=== PATIENT | male | born 1960 | race Two or more races ===

== ENCOUNTER → 2017-01-03 | Outpatient (CLI) | payer MEDICAID ==
[2017-01-03 07:28] LABS: CH 31.5; CHCM 34.1; HCT 42.8 % (39.0-53.0); HDW 2.66; HGB 14.2 gm/dL (13.0-17.5); MCH 30.7 pg (25.0-35.0); MCHC 33.2 g/dL (31.0-37.0); MCV 92.6 fL (80.0-100.0); Mean Platelet Volume 7.1; RBC 4.62 m/uL (4.30-5.90); RDW 13.3 % (11.5-15.5); WBC 5.5 k/uL (3.8-10.6)
[2017-01-03 11:34] LABS: Prostate Specific Antigen 0.61 ng/mL (0.00-4.00)
== END | disposition home or self-care (01) ==
LOC: LABWHC1 07:01
PROVIDERS: ATTEND Internal Medicine Endocrinology, Diabetes & Metabolism
DX: E29.1 Testicular hypofunction (principal)
CPT/HCPCS: 36415; 84153; 84403; 85027

== ENCOUNTER → 2017-06-16 | Outpatient (CLI) | payer MEDICAID ==
--- NOTE | 2017-06-16 13:53 | XR ---
Left ankle HISTORY: Trauma and pain 3 views of the left ankle No comparisons Soft tissue swelling is present. Ossific densities are present distal to the fibula which appear well -corticated and felt likely to represent chronic finding. Alignment, bone mineralization, joint space are maintained. There is a plantar calcaneal spur. Calcification present at the insertion of the Ach illes tendon. IMPRESSION: No acute abnormalities evident. Ankle MRI may be of increased sensitivity.
== END | disposition home or self-care (01) ==
LOC: RADXRMAIN 12:15
PROVIDERS: ATTEND Family Medicine
DX: M25.572 Pain in left ankle and joints of left foot (principal)

== ENCOUNTER → 2017-06-20 | Outpatient (CLI) | payer MEDICAID ==
[2017-06-20 09:05] LABS: ALT 53 U/L (21-72); AST 29 U/L (17-59); Alkaline Phosphatase 108 U/L (38-126); Anion Gap 10 mmol/L; Blood Urea Nitrogen 20 mg/dL (9-20); Calcium 9.9 mg/dL (8.4-10.2); Carbon Dioxide 25 mmol/L (22-30); Chloride 104 mmol/L (98-107); Glucose 132 mg/dL (74-99); Non-African American GFR(MDRD) >60 (>60 ml/min/1.73 sqM); Potassium 4.4 mmol/L (3.5-5.1); Sodium 139 mmol/L (137-145); Total Bilirubin 0.3 mg/dL (0.2-1.3); Total Protein 7.4 g/dL (6.3-8.2)
== END | disposition home or self-care (01) ==
LOC: LABWHC1 07:10
PROVIDERS: ATTEND Family Medicine
DX: E29.1 Testicular hypofunction (principal); I10 Essential (primary) hypertension
CPT/HCPCS: 36415; 80053

== ENCOUNTER → 2017-07-30 | Outpatient (CLI) | payer MEDICAID ==
--- NOTE | 2017-07-30 23:19 | MR ---
EXAMINATION TYPE: MR ankle LT wo con DATE OF EXAM: 07/30/2017 COMPARISON: NONE HISTORY: Left ankle Sprain Standard multiplanar, multisequence MRI departmental protocol Multiplanar, multisequence images of the left ankle were acquired. FINDINGS: There is mild ankle joint effusion. There is soft tissue edema noted anterior to the Achill es tendon. Achilles tendon is intact. Plantar fascia appears normal. The medial and lateral flexor te ndons of the ankle appear intact. The collateral ligaments are intact. Ankle mortise is anatomic. Kandis nt spaces are fairly normal. There is an Achilles calcaneal spur. There are varicose veins posterior to the ankle. There is abnormal increased signal on the T2 images in the base of the second metatarsal. I see no fr acture line. IMPRESSION: Varicose veins. Achilles calcaneal spurring. Small ankle joint effusion without evidence of a fractur e. This is consistent with synovitis. No evidence of ligament or tendon tear. Increased signal in the base of the second metatarsal consistent with a significant bone bruise. No f racture line seen.
== END | disposition home or self-care (01) ==
LOC: RADMRIMAIN 14:48
PROVIDERS: ATTEND Family Medicine
DX: M25.472 Effusion, left ankle (principal); I83.92 Asymptomatic varicose veins of left lower extremity; M77.32 Calcaneal spur, left foot

== ENCOUNTER 2019-05-05 21:34 | Observation (INO) | payer MEDICAID ==
--- NOTE | 2019-05-05 22:15 | ED ---
Chest Pain HPI - General Chief Complaint: Chest Pain Stated Complaint: Chest pain Time Seen by Provider: 05/05/19 21:56 Source: patient, family Mode of arrival: ambulatory Limitations: no limitations - History of Present Illness Initial Comments: This patient's 58-year-old man who presents with complaint of chest pain. He states that it had started in the late morning or early afternoon today. He describes as a tight feeling substernal area. The pain is mild. He had not noted worsening or relieving factors. The patient states however that when he went off to work tonight he felt like he was sweating more excessively than is usual for him. He denies other anginal type symptoms, including no dyspnea, nausea or vomiting, palpitations, lightheadedness or syncope. The patient further denies any family history of cardiac disease. No history of smoking. He has not previously had stress test or heart catheterization. MD Complaint: chest pain -: hour(s) Onset: during rest Pain Location: substernal Pain Radiation: none Severity: mild Quality: tightness Consistency: constant Improves With: nothing Worsens With: nothing Anginal Symptoms: diaphoresis Treatments Prior to Arrival: none - Related Data On Oral Contraceptives: No Home Medications Medication Instructions Recorded Confirmed Lisinopril/Hydrochlorothiazide 1 tab PO DAILY 08/22/16 05/05/19 [Lisinopril-Hctz 20-25 mg Tab] Tadalafil [Cialis] 20 mg PO DAILY PRN 08/22/16 05/05/19 Testosterone Cypionate 200 mg IM Q14D 08/22/16 05/05/19 [Depo-Testosterone] Atorvastatin [Lipitor] 40 mg PO HS 05/05/19 05/05/19 metFORMIN HCL [Glucophage] 500 mg PO DAILY 05/05/19 05/05/19 Allergies Allergy/AdvReac Type Severity Reaction Status Date / Time No Known Allergies Allergy Verified 05/05/19 22:14 Review of Systems ROS Statement: Those systems with pertinent positive or pertinent negative responses have been documented in the HPI. ROS Other: All systems not noted in ROS Statement are negative. Constitutional: Denies: fever, chills Respiratory: Denies: cough, dyspnea Cardiovascular: Reports: chest pain. Denies: palpitations, orthopnea, edema, syncope Gastrointestinal: Denies: abdominal pain, nausea, vomiting Genitourinary: Denies: dysuria, hematuria Musculoskeletal: Denies: back pain Skin: Denies: rash Neurological: Denies: headache, weakness, numbness EKG Findings - EKG Comments: EKG Findings:: Possible old septal infarct. - EKG Results: EKG: interpreted by GARCIA, sinus rhythm, normal axis, normal ST/T EKG shows: tachycardia (Rate 102 BPM) Past Medical History Past Medical History: Hypertension Additional Past Medical History / Comment(s): Receives testerone injections every 2 weeks for about one year History of Any Multi-Drug Resistant Organisms: None Reported Past Surgical History: No Surgical Hx Reported Additional Past Surgical History / Comment(s): colonoscopy Past Psychological History: No Psychological Hx Reported Smoking Status: Never smoker Past Alcohol Use History: Occasional Past Drug Use History: None Reported - Past Family History Mother Family Medical History: No Reported History Father Family Medical History: No Reported History General Exam Limitations: no limitations General appearance: alert, in no apparent distress Head exam: Present: atraumatic, normocephalic Eye exam: Present: normal appearance. Absent: scleral icterus, conjunctival injection Respiratory exam: Present: normal lung sounds bilaterally. Absent: respiratory distress, wheezes, rales, rhonchi, stridor Cardiovascular Exam: Present: regular rate, normal rhythm, normal heart sounds. Absent: systolic murmur, diastolic murmur, rubs, gallop GI/Abdominal exam: Present: soft. Absent: distended, tenderness, guarding, rebound, rigid, mass Extremities exam: Present: normal inspection, normal capillary refill. Absent: pedal edema, calf tenderness Back exam: Present: normal inspection. Absent: CVA tenderness (R), CVA tenderness (L) Neurological exam: Present: alert Skin exam: Present: warm, dry, intact, normal color. Absent: rash Course Vital Signs 05/05/19 05/05/19 21:38 22:03 Temperature 98.6 F Pulse Rate 100 96 Respiratory 18 16 Rate Blood Pressure 148/97 144/88 O2 Sat by Pulse 98 100 Oximetry Disposition Clinical Impression: Chest pain Disposition: ADMITTED IP TO THIS HOSP Condition: Good Instructions (If sedation given, give patient instructions): Chest Pain (ED) Is patient prescribed a controlled substance at d/c from ED?: No Referrals: Mayank Lara MD [Primary Care Provider] - 1-2 days
[2019-05-05 22:27] LABS: Basophils % (A) 0 %; Eosinophils # (A) 0.1 k/uL (0-0.7); Eosinophils % (A) 2 %; HCT 42.4 % (39.0-53.0); HGB 14.8 gm/dL (13.0-17.5); Lymphocytes # (A) 1.7 k/uL (1.0-4.8); Lymphocytes % (A) 22 %; MCH 30.4 pg (25.0-35.0); MCHC 34.9 g/dL (31.0-37.0); Mean Platelet Volume 7.7; Monocytes # (A) 0.5 k/uL (0-1.0); Monocytes % (A) 6 %; Neutrophils # (A) 5.3 k/uL (1.3-7.7); Neutrophils % (A) 69 %; Platelet Count 229 k/uL (150-450); RBC 4.87 m/uL (4.30-5.90); RDW 14.1 % (11.5-15.5); WBC 7.8 k/uL (3.8-10.6)
[2019-05-05 22:31] LABS: MCV 87.2 fL (80.0-100.0)
[2019-05-05 22:36] LABS: ALT 34 U/L (21-72); AST 23 U/L (17-59); African American GFR (CKD) >90 (>60 ml/min/1.73 sqM); Albumin 4.3 g/dL (3.5-5.0); Alkaline Phosphatase 94 U/L (38-126); Anion Gap 10 mmol/L; Blood Urea Nitrogen 14 mg/dL (9-20); Carbon Dioxide 26 mmol/L (22-30); Chloride 101 mmol/L (98-107); Glucose 138 mg/dL (74-99); INR 0.8 (<1.2); Magnesium 1.7 mg/dL (1.6-2.3); Prothrombin Time 9.4 sec (9.0-12.0); Sodium 137 mmol/L (137-145); Total Bilirubin 0.3 mg/dL (0.2-1.3); Total Protein 7.2 g/dL (6.3-8.2)
--- NOTE | 2019-05-05 23:35 | XR ---
EXAM: XR Chest, 2 Views CLINICAL HISTORY: Chest Pain TECHNIQUE: Frontal and lateral views of the chest. COMPARISON: No relevant prior studies available. FINDINGS: Lungs: Unremarkable. No consolidation. Pleural space: Unremarkable. No pneumothorax. Heart: Unremarkable. No cardiomegaly. Mediastinum: Unremarkable. Bones/joints: Unremarkable. IMPRESSION: No acute abnormality in the lungs
[2019-05-06] MEDS ORDERED: NITROGLYCERIN SL TABS 0.4 MG TAB SUBLINGUAL PRN (00:08)
[2019-05-06 00:52] VITALS: BMI 25.8
[2019-05-06 03:46] VITALS: RESP 18
[2019-05-06 06:44] LABS: Glucose,Whole Blood 120 mg/dL (75-99)
[2019-05-06 07:39] VITALS: BP 146/78; PULSE 92; TEMP 98.1
--- NOTE | 2019-05-06 08:28 | P.HPIM ---
History of Present Illness H&P Date: 05/06/19 Chief Complaint: Chest pain. The patient is here with new onset chest pressure at work. He states he was doing minimal exertion and had significant substernal chest pressure. No radiation but there is some mild diaphoresis. He has an underlying history of hypertension and diabetes. Enzymatic elevation is not present at this time but given his multiple risk factors he was admitted for observation. Blood pressure is slightly elevated. Review of Systems Constitutional: Denies chills, Denies fever Eyes: denies blurred vision, denies pain Ears, nose, mouth and throat: Denies headache, Denies sore throat Cardiovascular: Reports chest pain, Denies leg edema, Denies shortness of breath Respiratory: Denies cough Gastrointestinal: Denies abdominal pain, Denies diarrhea, Denies nausea, Denies vomiting Musculoskeletal: Denies myalgias Integumentary: Denies pruritus, Denies rash Neurological: Denies numbness, Denies weakness Past Medical History Past Medical History: Hypertension Additional Past Medical History / Comment(s): Receives testerone injections every 2 weeks for about one year History of Any Multi-Drug Resistant Organisms: None Reported Past Surgical History: No Surgical Hx Reported Additional Past Surgical History / Comment(s): colonoscopy Past Psychological History: No Psychological Hx Reported Smoking Status: Never smoker Past Alcohol Use History: Occasional Past Drug Use History: None Reported - Past Family History Mother Family Medical History: No Reported History Father Family Medical History: No Reported History Medications and Allergies Home Medications Medication Instructions Recorded Confirmed Type RX: Lisinopril/Hydrochlorothiazide 1 tab PO DAILY 08/22/16 05/05/19 History [Lisinopril-Hctz 20-25 mg Tab] RX: Tadalafil [Cialis] 20 mg PO DAILY PRN 08/22/16 05/05/19 History RX: Testosterone Cypionate 200 mg IM Q14D 08/22/16 05/05/19 History [Depo-Testosterone] Atorvastatin [Lipitor] 40 mg PO HS 05/05/19 05/05/19 History metFORMIN HCL [Glucophage] 500 mg PO DAILY 05/05/19 05/05/19 History Allergies Allergy/AdvReac Type Severity Reaction Status Date / Time No Known Allergies Allergy Verified 05/05/19 22:14 Physical Exam Vitals: Vital Signs Temp Pulse Pulse Resp BP BP Pulse Ox 05/06/19 07:10 98.1 F 92 18 146/78 97 05/06/19 03:51 137/67 05/06/19 03:43 98.0 F 65 18 152/73 99 05/06/19 00:56 98.3 F 82 16 156/84 98 05/06/19 00:16 98.2 F 90 15 144/85 98 05/05/19 22:03 96 16 144/88 100 05/05/19 21:38 98.6 F 100 18 148/97 98 Intake and Output 05/05/19 05/06/19 05/06/19 22:59 06:59 14:59 Output Total 1 Balance -1 Output: Urine 1 Other: Weight 66.224 kg - Constitutional General appearance: no acute distress - EENT Eyes: EOMI - Neck Neck: no lymphadenopathy - Respiratory Respiratory: bilateral: CTA - Cardiovascular Rhythm: regular Heart sounds: normal: S1, S2 Abnormal Heart Sounds: no S3 Gallop - Gastrointestinal General gastrointestinal: soft, no tenderness - Integumentary Integumentary: no cellulitis - Musculoskeletal Musculoskeletal: no generalized weakness - Psychiatric Psychiatric: A&O x's 3, appropriate affect, intact judgment & insight Results CBC & Chem 7: 05/05/19 22:00 05/05/19 22:00 Labs: Abnormal Lab Results - Last 24 Hours (Table) 05/05/19 05/06/19 Range/Units 22:00 06:41 Creatinine 0.64 L (0.66-1.25) mg/dL Glucose 138 H (74-99) mg/dL POC Glucose (mg/dL) 120 H (75-99) mg/dL Thrombosis Risk Factor Assmnt - Choose All That Apply Each Factor Represents 1 point: Age 41-60 years, Obesity (BMI >25) Thrombosis Risk Factor Assessment Total Risk Factor Score: 2 Thrombosis Risk Factor Assessment Level: Low Risk Assessment and Plan (1) Chest pain Current Visit: Yes Status: Acute Code(s): R07.9 - CHEST PAIN, UNSPECIFIED SNOMED Code(s): 79097634 (2) Hypertension Current Visit: No Status: Acute Code(s): I10 - ESSENTIAL (PRIMARY) HYPERTENSION SNOMED Code(s): 19543900 (3) New onset type 2 diabetes mellitus Current Visit: No Status: Acute Code(s): E11.9 - TYPE 2 DIABETES MELLITUS W ITHOUT COMPLICATIONS SNOMED Code(s): 43697297 Plan: Given his overall risk factors including advancing age with element of diabetes, we will order a's stress testing element. Today, we'll he will most likely have it done first thing next week. Increase antihypertensive control. Appreciate cardiology input. He is a full code
--- NOTE | 2019-05-06 08:31 | P.DS ---
Providers Date of admission: 05/06/19 00:10 Attending physician: Mayank Lara Consults: 05/06/19 00:08 Consult Physician Routine Consulting Provider: Brian Kevin Consult Reason/Comments: chest pain Do you want consulting provider notified?: Yes Primary care physician: Mayank Lara - Discharge Diagnosis(es) (1) Chest pain Current Visit: Yes Status: Acute (2) Hypertension Current Visit: No Status: Acute (3) New onset type 2 diabetes mellitus Current Visit: No Status: Acute Hospital Course: This discharge summary 58-year-old white male essentially admitted for angina. The patient has been ruled out for myocardial infraction and will be discharged for appropriate stress testing as an outpatient. He'll be discharged once cleared by cardiology. Patient Condition at Discharge: Good Plan - Discharge Summary New Discharge Prescriptions: New Aspirin 325 mg PO DAILY #0 tab Metoprolol Tartrate [Lopressor] 25 mg PO BID #60 tab Continue Tadalafil [Cialis] 20 mg PO DAILY PRN PRN Reason: E.D. Lisinopril/Hydrochlorothiazide [Lisinopril-Hctz 20-25 mg Tab] 1 tab PO DAILY Testosterone Cypionate [Depo-Testosterone] 200 mg IM Q14D metFORMIN HCL [Glucophage] 500 mg PO DAILY Atorvastatin [Lipitor] 40 mg PO HS Discharge Medication List Lisinopril/Hydrochlorothiazide [Lisinopril-Hctz 20-25 mg Tab] 1 tab PO DAILY 08/22/16 [History] Tadalafil [Cialis] 20 mg PO DAILY PRN 08/22/16 [History] Testosterone Cypionate [Depo-Testosterone] 200 mg IM Q14D 08/22/16 [History] Atorvastatin [Lipitor] 40 mg PO HS 05/05/19 [History] metFORMIN HCL [Glucophage] 500 mg PO DAILY 05/05/19 [History] Aspirin 325 mg PO DAILY #0 tab 05/06/19 [Rx] Metoprolol Tartrate [Lopressor] 25 mg PO BID #60 tab 05/06/19 [Rx] Follow up Appointment(s)/Referral(s): Mayank Lara MD [Primary Care Provider] - 1 Week Patient Instructions/Handouts: Chest Pain (ED) Discharge Disposition: HOME SELF-CARE
[2019-05-06 08:56] LABS: Cholesterol 133 mg/dL (<200); HDL Cholesterol 49 mg/dL (40-60); LDL Cholesterol,Calculated 62 mg/dL (0-99); Triglycerides 109 mg/dL (<150)
[2019-05-06] MEDS ORDERED: LISINOPRIL-HCTZ 20-25 MG 1 EACH TAB PO SCH (09:00)
[2019-05-06] MEDS ORDERED: metFORMIN 500 MG TAB PO SCH (09:00)
[2019-05-06] MEDS ORDERED: METOPROLOL TARTRATE 25 MG TAB PO SCH (09:00)
--- NOTE | 2019-05-06 10:37 | P.CRDCN ---
History of Present Illness History of present illness: This is Dr. Kevin dictating a consult on this patient The patient was interviewed and examined by me IMPRESSION / ASSESSMENT: Patient presented with chest discomfort on 2 separate occasions, very brief No dizziness lightheadedness or palpitations associated with this Normal cardiac enzymes no evidence for acute myocardial infarction Serial ECGs are normal Recently diagnosed with diabetes Hypertension, elevated blood pressure readings here Increased stress level at home Never smoker PLAN: Maximize antihypertensive therapy, add metoprolol tartrate 50 g twice daily Lipid panel Stress testing as an inpatient or early outpatient Follow Dr. Patterson thereafter HPI Patient presented with chest discomfort. Both episodes were brief. One was with average activities Nonradiating and lasted for less than a minute or so No associated symptoms Otherwise patient has good excess capacity no increased fatigue shortness of breath or any prior symptoms of the last few weeks ROS: No fever chills or rigors, no cough, phlegm or expectoration, no nausea, vomiting or diarrhea, no hematuria, dysuria, no musculoskeletal complaints, no strokes or seizures, no skin lesions. EXAMINATION: Afebrile 98.1F pulse rate 90 Blood pressure 137/67 146/78 Upon admission blood pressure is 156/84 and 152/73 minute his mercury Normal heart sounds no murmurs or gallop or rub Breath sounds are clear no rhonchi no crackles Abdomen soft nontender External is warm no edema No carotid bruits no JVD REVIEW OF LABS, ECG & MEDICAL DATA Hemoglobin 14.8 hematocrit 42.4 D-dimer 0.31 Electrolytes normal potassium 4.0 sodium 137 GFR greater than 90 BUN 14 creatinine 0.64 3 normal cardiac enzymes LDL 62 total cholesterol 133 triglycerides 109 Past Medical History Past Medical History: Hypertension Additional Past Medical History / Comment(s): Receives testerone injections every 2 weeks for about one year History of Any Multi-Drug Resistant Organisms: None Reported Past Surgical History: No Surgical Hx Reported Additional Past Surgical History / Comment(s): colonoscopy Past Psychological History: No Psychological Hx Reported Smoking Status: Never smoker Past Alcohol Use History: Occasional Past Drug Use History: None Reported - Past Family History Mother Family Medical History: No Reported History Father Family Medical History: No Reported History Medications and Allergies Home Medications Medication Instructions Recorded Confirmed Type Lisinopril/Hydrochlorothiazide 1 tab PO DAILY 08/22/16 05/05/19 History [Lisinopril-Hctz 20-25 mg Tab] Tadalafil [Cialis] 20 mg PO DAILY PRN 08/22/16 05/05/19 History Testosterone Cypionate 200 mg IM Q14D 08/22/16 05/05/19 History [Depo-Testosterone] Atorvastatin [Lipitor] 40 mg PO HS 05/05/19 05/05/19 History metFORMIN HCL [Glucophage] 500 mg PO DAILY 05/05/19 05/05/19 History Aspirin 325 mg PO DAILY #0 tab 05/06/19 Rx Metoprolol Tartrate [Lopressor] 25 mg PO BID #60 tab 05/06/19 Rx Allergies Allergy/AdvReac Type Severity Reaction Status Date / Time No Known Allergies Allergy Verified 05/05/19 22:14 Physical Exam Vitals: Vital Signs Temp Pulse Pulse Resp BP BP Pulse Ox 05/06/19 07:10 98.1 F 92 18 146/78 97 05/06/19 03:51 137/67 05/06/19 03:43 98.0 F 65 18 152/73 99 05/06/19 00:56 98.3 F 82 16 156/84 98 05/06/19 00:16 98.2 F 90 15 144/85 98 05/05/19 22:03 96 16 144/88 100 05/05/19 21:38 98.6 F 100 18 148/97 98 Intake and Output 05/05/19 05/06/19 05/06/19 22:59 06:59 14:59 Output Total 1 Balance -1 Output: Urine 1 Other: Weight 66.224 kg Results 05/05/19 22:00 05/05/19 22:00 Cardiac Enzymes 05/05/19 05/05/19 05/06/19 Range/Units 22:00 22:00 05:22 AST 23 (17-59) U/L Troponin I <0.012 <0.012 (0.000-0.034) ng/mL Coagulation 05/05/19 Range/Units 22:00 PT 9.4 (9.0-12.0) sec APTT 25.0 (22.0-30.0) sec CBC 05/05/19 Range/Units 22:00 WBC 7.8 (3.8-10.6) k/uL RBC 4.87 (4.30-5.90) m/uL Hgb 14.8 (13.0-17.5) gm/dL Hct 42.4 (39.0-53.0) % Plt Count 229 (150-450) k/uL Comprehensive Metabolic Panel 05/05/19 Range/Units 22:00 Sodium 137 (137-145) mmol/L Potassium 4.0 (3.5-5.1) mmol/L Chloride 101 (98-107) mmol/L Carbon Dioxide 26 (22-30) mmol/L BUN 14 (9-20) mg/dL Creatinine 0.64 L (0.66-1.25) mg/dL Glucose 138 H (74-99) mg/dL Calcium 10.0 (8.4-10.2) mg/dL AST 23 (17-59) U/L ALT 34 (21-72) U/L Alkaline Phosphatase 94 (38-126) U/L Total Protein 7.2 (6.3-8.2) g/dL Albumin 4.3 (3.5-5.0) g/dL Current Medications Generic Name Dose Route Start Last Admin Trade Name Daleq PRN Reason Stop Dose Admin Aspirin 325 mg 05/07/19 09:00 Aspirin PO DAILY [facility] Atorvastatin Calcium 40 mg 05/06/19 21:00 Lipitor PO HS [facility] Lisinopril/HCTZ 1 each 05/06/19 09:00 Zestoretic 20-25 PO DAILY [facility] Metformin HCl 500 mg 05/06/19 09:00 Glucophage PO DAILY [facility] Metoprolol Tartrate 25 mg 05/06/19 09:00 Lopressor PO BID [facility] Nitroglycerin 0.4 mg 05/06/19 00:08 05/06/19 03:46 Nitrostat SUBLINGUAL 0.4 mg Q5M PRN Administration Chest Pain Sodium Chloride 10 ml 05/06/19 09:00 Saline Flush IV BID OMEGA Intake and Output 05/05/19 05/06/19 05/06/19 22:59 06:59 14:59 Output Total 1 Balance -1 Output: Urine 1 Other: Weight 66.224 kg 05/05/19 22:00 05/05/19 22:00
[2019-05-06] MEDS ORDERED: ATORVASTATIN 40 MG TAB PO SCH (21:00)
[2019-05-07] MEDS ORDERED: ASPIRIN 325 MG TAB PO SCH (09:00)
== END 2019-05-06 10:45 | disposition home or self-care (01) ==
LOC: EC 21:34 → 1SOBS 05-06 00:10
PROVIDERS: ADMIT Family Medicine; ATTEND Family Medicine
DX: I20.9 Angina pectoris, unspecified (principal); I10 Essential (primary) hypertension; E11.9 Type 2 diabetes mellitus without complications; R61 Generalized hyperhidrosis; Z63.8 Other specified problems related to primary support group; Z79.899 Other long term (current) drug therapy; Z79.84 Long term (current) use of oral hypoglycemic drugs; Z79.82 Long term (current) use of aspirin
CPT/HCPCS: 99285; 36415; 93005; 85379; 80061; 80053; 83735; 84484 ×2; 85025; 85610; 85730; 71046; G0378

== ENCOUNTER 2019-06-15 20:35 | Emergency (ER) | payer MEDICAID ==
--- NOTE | 2019-06-15 21:54 | ED ---
Extremity Problem HPI - General Chief complaint: Extremity Problem,Nontraumatic Stated complaint: R Leg Pain Time Seen by Provider: 06/15/19 20:50 Source: patient Mode of arrival: wheelchair Limitations: no limitations - History of Present Illness Initial comments: Patient is a 58-year-old male presenting to the emergency Department with complaints of pain in his right lower leg 2 weeks. Patient states he did go see Dr. Lara regarding this issue and they thought it was related to soft tissue and recommended taking Motrin for the pain. Patient states he was able to work all day on his feet yesterday and was pain-free but then states he has pain with walking today. Patient denies recent travel or history DVTs. Patient denies any trauma to the lower leg. Patient has no other complaints at this time. - Related Data Home Medications Medication Instructions Recorded Confirmed Lisinopril/Hydrochlorothiazide 1 tab PO DAILY 08/22/16 06/15/19 [Lisinopril-Hctz 20-25 mg Tab] Tadalafil [Cialis] 20 mg PO DAILY PRN 08/22/16 06/15/19 Testosterone Cypionate 200 mg IM Q14D 08/22/16 06/15/19 [Depo-Testosterone] Atorvastatin [Lipitor] 40 mg PO HS 05/05/19 06/15/19 metFORMIN HCL [Glucophage] 500 mg PO DAILY 05/05/19 06/15/19 Previous Rx's Medication Instructions Recorded Aspirin 325 mg PO DAILY #0 tab 05/06/19 Metoprolol Tartrate [Lopressor] 25 mg PO BID #60 tab 05/06/19 Allergies Allergy/AdvReac Type Severity Reaction Status Date / Time No Known Allergies Allergy Verified 05/05/19 22:14 Review of Systems ROS Statement: Those systems with pertinent positive or pertinent negative responses have been documented in the HPI. ROS Other: All systems not noted in ROS Statement are negative. Past Medical History Past Medical History: Hypertension Additional Past Medical History / Comment(s): Receives testerone injections every 2 weeks for about one year History of Any Multi-Drug Resistant Organisms: None Reported Past Surgical History: No Surgical Hx Reported Additional Past Surgical History / Comment(s): colonoscopy Past Psychological History: No Psychological Hx Reported Smoking Status: Never smoker Past Alcohol Use History: Occasional Past Drug Use History: None Reported - Past Family History Mother Family Medical History: No Reported History Father Family Medical History: No Reported History General Exam - General Exam Comments Initial Comments: GENERAL: Well-appearing, well-nourished and in no acute distress. HEAD: Atraumatic, normocephalic. EYES: Pupils equal round and reactive to light, extraocular movements intact, sclera anicteric, conjunctiva are normal. ENT: TMs normal, nares patent, oropharynx clear without exudates. Moist mucous membranes. NECK: Normal range of motion, supple without lymphadenopathy or JVD. LUNGS: Breath sounds clear to auscultation bilaterally and equal. No wheezes rales or rhonchi. HEART: Regular rate and rhythm without murmurs, rubs or gallops. ABDOMEN: Soft, nontender, normoactive bowel sounds. No guarding, no rebound. No masses appreciated. : Deferred EXTREMITIES: No pitting or edema. No clubbing or cyanosis. Patient has mild pain with palpation along the right probably Harkins. Patient has full range of motion of the right knee and ankle. There is no ecchymosis or swelling. NEUROLOGICAL: Cranial nerves II through XII grossly intact. Normal speech, normal gait. PSYCH: Normal mood, normal affect. SKIN: Warm, Dry, normal turgor, no rashes or lesions noted. Limitations: no limitations Course Vital Signs 06/15/19 06/15/19 20:39 22:30 Temperature 97.8 F 98 F Pulse Rate 51 L 60 Respiratory 20 18 Rate Blood Pressure 168/87 151/71 O2 Sat by Pulse 100 98 Oximetry Medical Decision Making - Medical Decision Making Patient is a 58-year-old male with complaints of right lower leg pain 2 weeks. Patient was saw by his doctor Dr. Lara and stated is most likely soft tissue injury recommended Motrin. Patient denies any trauma to the area, no recent travel, no history of DVTs. On exam patient has tenderness of the peroneal is on the right lower leg. Patient has full range of motion of his right knee and ankle. No erythema, swelling of the overlying skin. Ultrasound reveals no DVTs of the right lower extremity. Discussed with patient this is most likely a soft tissue injury. Continue with ice and Motrin for pain relief. Patient is stable for discharge. Return parameters were discussed with the patient he verbalizes understanding. Case discussed with Dr. Lara. Disposition Clinical Impression: Pain in right lower leg Disposition: HOME SELF-CARE Condition: Stable Instructions (If sedation given, give patient instructions): Leg Pain (ED) Additional Instructions: Please return to the Emergency Department if symptoms worsen or any other concerns. Is patient prescribed a controlled substance at d/c from ED?: No Referrals: Mayank Lara MD [Primary Care Provider] - 1-2 days
--- NOTE | 2019-06-15 22:22 | US ---
EXAM: US Duplex Right Lower Extremity Veins CLINICAL HISTORY: ITS.REASON US Reason: Pain TECHNIQUE: Real-time duplex ultrasound scan of the right lower extremity veins integrating B-mode two-dimensional vascular structure, Doppler spectral analysis, color flow Doppler imaging and compression. COMPARISON: None. FINDINGS: Deep veins: Unremarkable. No DVT in the visualized common femoral, femoral, proximal deep femoral or popliteal veins. The veins demonstrate normal color flow, are normally compressible, with normal phasic flow and/or augmentation response. Superficial veins: Unremarkable. No thrombus in the visualized great saphenous vein. Soft tissues: No acute findings. No popliteal cyst. IMPRESSION: No evidence of deep vein thrombosis in the right lower extremity.
[2019-06-15 22:55] VITALS: BP 151/71; PULSE 60; RESP 18; TEMP 98
== END 2019-06-15 22:32 | disposition home or self-care (01) ==
LOC: EC 20:35
DX: M79.604 Pain in right leg (principal); I10 Essential (primary) hypertension; Z79.890 Hormone replacement therapy; Z79.84 Long term (current) use of oral hypoglycemic drugs; Z79.899 Other long term (current) drug therapy
CPT/HCPCS: 99283

== ENCOUNTER → 2020-04-20 | Outpatient (CLI) | payer MEDICAID ==
--- NOTE | 2020-04-20 11:18 | XR ---
EXAMINATION TYPE: XR Hip Complete RT DATE OF EXAM: 04/20/2020 CLINICAL HISTORY: pain TECHNIQUE: AP and frogleg views of the right hip are obtained. COMPARISON: None. FINDINGS: There is no acute fracture/dislocation evident. Moderate degenerative joint space narrowin g right hip joint. Convex spurring superior acetabular margin may result in femoral acetabular imping ement. Correlate clinically. The overlying soft tissue appears unremarkable. IMPRESSION: 1. There is no acute fracture or dislocation. ICD 10 NO FRACTURE, INITIAL EVALUATION
== END | disposition home or self-care (01) ==
LOC: RADXRYALE 10:32
PROVIDERS: ATTEND Family Medicine
DX: M25.551 Pain in right hip (principal)
CPT/HCPCS: 73502

== ENCOUNTER → 2021-09-23 | Outpatient (CLI) | payer MEDICAID ==
--- NOTE | 2021-09-23 15:28 | XR ---
EXAMINATION TYPE: XR lumbar spine 2 or 3V DATE OF EXAM: 09/23/2021 CLINICAL HISTORY: Worsening low back pain. TECHNIQUE: Frontal and lateral images of the lumbar spine are obtained. COMPARISON: None FINDINGS: There are 5 lumbar type vertebral bodies identified. The lumbar spine shows satisfactory alignment without evidence of acute fracture or dislocation. Vertebral body heights are within normal limits. Mild multilevel disc space narrowing. Moderate multilevel anterior and lateral spurring. Pro minent lateral spur left L3-L4 level. The overlying soft tissue appears unremarkable. IMPRESSION: As above.
== END | disposition home or self-care (01) ==
LOC: RADXRYALE 14:25
PROVIDERS: ATTEND Family Medicine
DX: M51.36 Other intervertebral disc degeneration, lumbar region (principal)
CPT/HCPCS: 72100

== ENCOUNTER → 2021-11-20 | Outpatient (CLI) | payer MEDICAID | END | disposition home or self-care (01) | LOC: LABWHC1 11:09 | PROVIDERS: ATTEND Family Medicine | DX: U07.1 COVID-19 (principal) | CPT/HCPCS: U0003; C9803 ==

== ENCOUNTER 2022-10-14 05:00 | Emergency (ER) | payer MEDICAID ==
[2022-10-14 05:15] VITALS: TEMP 98.8
[2022-10-14] MEDS ORDERED: KETOROLAC 15 MG/ML 1 ML VIAL IM STA (05:23)
--- NOTE | 2022-10-14 05:26 | ED ---
General Adult HPI - General Chief complaint: Neck Pain/Injury Stated complaint: Neck pain Time Seen by Provider: 10/14/22 05:17 Source: patient Mode of arrival: ambulatory Limitations: no limitations - History of Present Illness Initial comments: Dictation was produced using [employer] dictation software. please excuse any grammatical, word or spelling errors. Chief Complaint: 61-year-old male presents emergency Department with neck strain History of Present Illness: Patient 61-year-old male presents emergency Department with neck strain. 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 Patient states that he woke up the next morning noticed that he was having tightness to his cervical spine. Patient states it hurts whenever he turns his head to the left or the right. Denies any numbness or paresthesias to the arms or legs. Patient denies any trauma. States that when he still symptoms feel that severe. Denies any fever, chills or night sweats. The ROS documented in this emergency department record has been reviewed and confirmed by me. Those systems with pertinent positive or negative responses have been documented in the HPI. All other systems are other negative and/or noncontributory. PHYSICAL EXAM: General Impression: Alert and oriented x3, not in acute distress HEENT: Normocephalic atraumatic, extra-ocular movements intact, pupils equal and reactive to light bilaterally, mucous membranes moist. Cardiovascular: Heart regular rate and rhythm Chest: Able to complete full sentences, no retractions, no tachypnea Abdomen: abdomen soft, non-tender, non-distended, no organomegaly Musculoskeletal: Pulses present and equal in all extremities, no peripheral edema Cervical spine: Palpatory tenderness to the upper trapezius bilaterally Motor: no focal deficits noted Neurological: CN II-XII grossly intact, no focal motor or sensory deficits noted Skin: Intact with no visualized rashes Psych: Normal affect and mood ED course: 61-year-old male presents emergency Department with cervical strain. vital signs upon arrival are within acceptable limits. Nursing notes and chart review was performed C-spine x-ray shows no acute processes. There does appear to be some degenerative changes. Patient given analgesics with improvement of symptoms. Patient be discharged with prescription for muscle relaxants. Patient advised follow-up with primary care doctor. - Related Data Home Medications Medication Instructions Recorded Confirmed Lisinopril/Hydrochlorothiazide 1 tab PO DAILY 08/22/16 06/15/19 [Lisinopril-Hctz 20-25 mg Tab] Testosterone Cypionate 200 mg IM Q14D 08/22/16 06/15/19 [Depo-Testosterone] tadalafiL [Cialis] 20 mg PO DAILY PRN 08/22/16 06/15/19 Atorvastatin [Lipitor] 40 mg PO HS 05/05/19 06/15/19 metFORMIN HCL [Glucophage] 500 mg PO DAILY 05/05/19 06/15/19 Previous Rx's Medication Instructions Recorded Aspirin 325 mg PO DAILY #0 tab 05/06/19 Metoprolol Tartrate [Lopressor] 25 mg PO BID #60 tab 05/06/19 methocarbamoL [Robaxin] 1,000 mg PO TID PRN #24 tab 10/14/22 Allergies Allergy/AdvReac Type Severity Reaction Status Date / Time No Known Allergies Allergy Verified 10/14/22 05:15 Review of Systems ROS Statement: Those systems with pertinent positive or pertinent negative responses have been documented in the HPI. ROS Other: All systems not noted in ROS Statement are negative. Past Medical History Past Medical History: Hypertension Additional Past Medical History / Comment(s): Receives testerone injections every 2 weeks for about one year History of Any Multi-Drug Resistant Organisms: None Reported Past Surgical History: No Surgical Hx Reported Additional Past Surgical History / Comment(s): colonoscopy Past Psychological History: No Psychological Hx Reported Smoking Status: Never smoker Past Alcohol Use History: Occasional Past Drug Use History: None Reported - Past Family History Mother Family Medical History: No Reported History Father Family Medical History: No Reported History General Exam Limitations: no limitations Course Vital Signs 10/14/22 05:11 Temperature 98.8 F Pulse Rate 113 H Respiratory 20 Rate Blood Pressure 168/101 O2 Sat by Pulse 97 Oximetry Disposition Clinical Impression: Cervical strain Disposition: HOME SELF-CARE Condition: Good Instructions (If sedation given, give patient instructions): Cervical Strain (ED) Prescriptions: methocarbamoL [Robaxin] 1,000 mg PO TID PRN #24 tab PRN Reason: Pain Is patient prescribed a controlled substance at d/c from ED?: No Referrals: Mayank Lara MD [Primary Care Provider] - 1-2 days Benji Kirk DO [Doctor of Osteopathic Medicine] - 1-2 days Time of Disposition: 06:36
--- NOTE | 2022-10-14 06:28 | XR ---
EXAMINATION TYPE: XR cervical spine comp DATE OF EXAM: 10/14/2022 TECHNIQUE: Frontal, lateral, oblique, swimmers, and open mouth view of the cervical spine are obtaine d. HISTORY: neck strain injury with pain COMPARISON: None FINDINGS: The cervical spine is visualized in its entirety from C1 thru the top of T1 level, there i s subtle grade 1 retrolisthesis C3 on C4 and C5 on C6 without evidence of acute fracture or dislocati on. Slight levoconvex scoliotic curvature centered cervical thoracic junction on frontal view. The pr e-vertebral soft tissue appears within normal limits. The C1-C2 articulation is within normal limits on the open mouth view. Vertebral body heights are maintained. Mild to moderate disc space narrowing and spurring C3-C4, C5-C6, and C6-C7 levels is present. The oblique images show marginal spurring c ausing bilateral neural foraminal narrowing greatest right C5-C6 and C6-C7 levels and left C3-C4 leve l. Overlying soft tissue is unremarkable. IMPRESSION: As above.
[2022-10-14 06:56] VITALS: BP 144/81; PULSE 102; RESP 18
== END 2022-10-14 06:56 | disposition home or self-care (01) ==
LOC: EC 05:00
DX: S13.4XXA Sprain of ligaments of cervical spine, initial encounter (principal); I10 Essential (primary) hypertension; Z79.899 Other long term (current) drug therapy; X50.0XXA Overexertion from strenuous movement or load, initial encounter
CPT/HCPCS: 72050; 99283; 96372 ×2; J3360; J1885

== ENCOUNTER → 2024-02-05 | Outpatient (CLI) | payer MEDICAID ==
[2024-02-05 15:47] LABS: HCT 44.8 % (39.6-50.0); HGB 14.6 g/dL (13.0-17.0); MCH 29.4 pg (27.0-32.0); MCHC 32.6 g/dL (32.0-37.0); MCV 90.1 FL (80.0-97.0); Mean Platelet Volume 10.9 FL (9.5-12.2); NRBC Per 100 WBC 0 X 10*3/uL (0.00-0.01); Platelet Count 263 X 10*3/uL (140-440); RBC 4.97 X 10*6/uL (4.40-5.60); WBC 5.08 X 10*3/uL (4.50-10.00)
[2024-02-05 15:58] LABS: Prostate Specific Antigen 0.73 ng/mL (0.000-4.500)
== END | disposition home or self-care (01) ==
LOC: LABWHC1 06:59
PROVIDERS: ATTEND Internal Medicine Endocrinology, Diabetes & Metabolism
DX: E29.1 Testicular hypofunction (principal)
CPT/HCPCS: 36415; 84153; 84403; 85027

== ENCOUNTER 2024-03-02 20:09 | Emergency (ER) | payer MEDICAID ==
[2024-03-02 20:33] VITALS: RESP 16
--- NOTE | 2024-03-02 20:50 | ED ---
General Adult HPI - General Chief complaint: Back Pain/Injury Stated complaint: back pain Time Seen by Provider: 03/02/24 20:35 Source: patient, RN notes reviewed Mode of arrival: ambulatory Limitations: no limitations - History of Present Illness Initial comments: 63-year-old male presents to the emergency department for evaluation of back pain. He states that this has been going on for about 2 years but since yesterday he has had worsening pain. Notes the pain is from his mid back down to his pelvis. He denies any recent injury. He denies loss of bowel or bladder function, saddle anesthesia, radiation of the pain. He denies recent fever, chills. Medical history includes hypertension, diabetes. - Related Data Home Medications Medication Instructions Recorded Confirmed Lisinopril/Hydrochlorothiazide 1 tab PO DAILY 08/22/16 06/15/19 [Lisinopril-Hctz 20-25 mg Tab] Testosterone Cypionate 200 mg IM Q14D 08/22/16 06/15/19 [Depo-Testosterone] tadalafiL [Cialis] 20 mg PO DAILY PRN 08/22/16 06/15/19 Atorvastatin [Lipitor] 40 mg PO HS 05/05/19 06/15/19 metFORMIN HCL [Glucophage] 500 mg PO DAILY 05/05/19 06/15/19 Previous Rx's Medication Instructions Recorded Aspirin 325 mg PO DAILY #0 tab 05/06/19 Metoprolol Tartrate [Lopressor] 25 mg PO BID #60 tab 05/06/19 methocarbamoL [Robaxin] 1,000 mg PO TID PRN #24 tab 10/14/22 Cyclobenzaprine [Flexeril] 10 mg PO TID #9 tab 03/02/24 Ketorolac [Toradol] 10 mg PO Q6HR #12 tab 03/02/24 Allergies Allergy/AdvReac Type Severity Reaction Status Date / Time No Known Allergies Allergy Verified 03/02/24 20:12 Review of Systems ROS Statement: Those systems with pertinent positive or pertinent negative responses have been documented in the HPI. ROS Other: All systems not noted in ROS Statement are negative. Past Medical History Past Medical History: Hypertension Additional Past Medical History / Comment(s): Receives testerone injections every 2 weeks for about one year History of Any Multi-Drug Resistant Organisms: None Reported Past Surgical History: No Surgical Hx Reported Additional Past Surgical History / Comment(s): colonoscopy Past Psychological History: No Psychological Hx Reported Smoking Status: Never smoker Past Alcohol Use History: Occasional Past Drug Use History: None Reported - Past Family History Mother Family Medical History: No Reported History Father Family Medical History: No Reported History General Exam Limitations: no limitations General appearance: alert, in no apparent distress Head exam: Present: atraumatic, normocephalic, normal inspection Eye exam: Present: normal appearance, PERRL, EOMI. Absent: scleral icterus, conjunctival injection, periorbital swelling ENT exam: Present: normal exam, mucous membranes moist Neck exam: Present: normal inspection. Absent: tenderness, meningismus, lymphadenopathy Respiratory exam: Present: normal lung sounds bilaterally. Absent: respiratory distress, wheezes, rales, rhonchi, stridor Cardiovascular Exam: Present: regular rate, normal rhythm, normal heart sounds. Absent: systolic murmur, diastolic murmur, rubs, gallop, clicks Extremities exam: Present: normal inspection, full ROM, normal capillary refill. Absent: tenderness, pedal edema, joint swelling, calf tenderness Back exam: Present: normal inspection, full ROM, tenderness, vertebral tenderness. Absent: CVA tenderness (R), CVA tenderness (L), paraspinal t enderness Neurological exam: Present: alert, oriented X3 Psychiatric exam: Present: normal affect, normal mood Skin exam: Present: warm, dry, intact, normal color. Absent: rash Course Vital Signs 03/02/24 03/02/24 03/02/24 20:10 21:00 22:04 Temperature 98.4 F Pulse Rate 65 79 65 Respiratory 16 16 16 Rate Blood Pressure 170/74 162/92 146/82 O2 Sat by Pulse 99 99 98 Oximetry 03/02/24 23:06 Temperature 97.8 F Pulse Rate 64 Respiratory 16 Rate Blood Pressure 146/80 O2 Sat by Pulse 97 Oximetry Medical Decision Making - Medical Decision Making Was pt. sent in by a medical professional or institution (, PA, LEGAL RECORDS CLERK, urgent care, hospital, or [facility]...) When possible be specific @ -No Did you speak to anyone other than the patient for history (EMS, parent, family, police, friend...)? What history was obtained from this source @ -No Did you review nursing and triage notes (agree or disagree)? Why? @ -I reviewed and agree with nursing and triage notes Were old charts reviewed (outside hosp., previous admission, EMS record, old EKG, old radiological studies, urgent care reports/EKG's, chcf records)? Report findings @ -No old charts were reviewed Differential Diagnosis (chest pain, altered mental status, abdominal pain women, abdominal pain men, vaginal bleeding, weakness, fever, dyspnea, syncope, headache, dizziness, GI bleed, back pain, seizure, CVA, palpatations, mental health, musculoskeletal)? @ -Differential Back Pain: Strain, zoster, cauda equina syndrome, epidural abscess, vertebral osteomyelitis, discitis, fracture, subluxation, disc herniation, DJD, spinal stenosis, dissection, AAA, pancreatitis, peptic ulcer disease, pyelonephritis, kidney stone, this is not meant to be an all-inclusive list. EKG interpreted by me (3pts min.). @ -None X-rays interpreted by me (1pt min.). @ -X-ray of the lumbar spine obtained which showed moderate degenerative joint changes CT interpreted by me (1pt min.). @ -None done U/S interpreted by me (1pt. min.). @ -None done What testing was considered but not performed or refused? (CT, X-rays, U/S, labs)? Why? @ -None What meds were considered but not given or refused? Why? @ -None Did you discuss the management of the patient with other professionals (professionals i.e. , PA, LEGAL RECORDS CLERK, lab, RT, psych nurse, secondary social studies teacher, fiberglass technician, teacher, gifts officer, senior clinical data manager)? Give summary @ -No Was smoking cessation discussed for >3mins.? @ -No Was critical care preformed (if so, how long)? @ -No Were there social determinants of health that impacted care today? How? (Homelessness, low income, unemployed, alcoholism, drug addiction, transportation, low edu. Level, literacy, decrease access to med. care, chcf, rehab)? @ -No Was there de-escalation of care discussed even if they declined (Discuss DNR or withdrawal of care, Hospice)? DNR status @ -No What co-morbidities impacted this encounter? (DM, HTN, Smoking, COPD, CAD, Cancer, CVA, ARF, Chemo, Hep., AIDS, mental health diagnosis, sleep apnea, morbid obesity)? @ -None Was patient admitted / discharged? Hospital course, mention meds given and route, prescriptions, significant lab abnormalities, going to OR and other per tinent info. @ -Discharge. Patient presented to the emergency department for evaluation of back pain. He is not any red flag symptoms at this time. X-rays of the lumbar spine obtained which show no acute abnormality, moderate degenerative joint changes. Patient was provided a dose of Toradol and Norflex in the emergency department. He states that this completely resolved his symptoms. Prescription sent to patient's pharmacy for Toradol and Flexeril. Advised not to take any other anti-inflammatories with the Toradol and not to drive while taking the Flexeril. Patient expressed her understanding and is agreeable with this plan. Patient stable at time of discharge. Case discussed with Dr. Stephens. Undiagnosed new problem with uncertain prognosis? @ -No Drug Therapy requiring intensive monitoring for toxicity (Heparin, Nitro, Insulin, Cardizem)? @ -No Were any procedures done? @ -No Diagnosis/symptom? @ -Back pain Acute, or Chronic, or Acute on Chronic? @ -Acute Uncomplicated (without systemic symptoms) or Complicated (systemic symptoms)? @ -Uncomplicated Side effects of treatment? @ -No Exacerbation, Progression, or Severe Exacerbation? @ -No Poses a threat to life or bodily function? How? (Chest pain, [place], [place], pneumonia, PE, COPD, DKA, ARF, appy, cholecystitis, CVA, Diverticulitis, Homicidal, Suicidal, threat to staff... and all critical care pts) @ -No Disposition Clinical Impression: Strain of lumbar region Disposition: HOME SELF-CARE Condition: Stable Instructions (If sedation given, give patient instructions): Acute Low Back Pain (ED) Additional Instructions: Please do not drive or operate heavy machinery while taking muscle relaxers. Do NOT take any other anti-inflammatory medications including ibuprofen while taking Toradol. Please return to the emergency department for new or worsening symptoms. Prescriptions: Cyclobenzaprine [Flexeril] 10 mg PO TID #9 tab Ketorolac [Toradol] 10 mg PO Q6HR #12 tab Is patient prescribed a controlled substance at d/c from ED?: No Referrals: Mayank Lara MD [Primary Care Provider] - 1-2 days
[2024-03-02] MEDS: KETOROLAC 15 MG/ML 1 ML VIAL IM STA (21:02)
[2024-03-02] MEDS: ORPHENADRINE 30 MG/ML 2 ML VIAL IM STA (21:03)
--- NOTE | 2024-03-02 22:34 | XR ---
EXAMINATION TYPE: XR lumbar spine 2 or 3V DATE OF EXAM: 03/02/2024 9:00 PM CLINICAL INDICATION:Male, 63 years old with history of pain; [facility] COMPARISON: 09/23/2021 x-rays TECHNIQUE: XR lumbar spine 2 or 3V - Frontal, lateral and coned down L5-S1 lateral views of the lumba r spine. FINDINGS: There are 5 lumbar-type vertebral bodies. Mineralization appears within normal limits. No osseous cornel tructive process seen. Vertebral body heights and disc spacing are preserved. There is normal alignme nt of the lumbar vertebral bodies. No significant degenerative changes throughout the spine. Soft tissues are unremarkable. IMPRESSION: 1. No radiographic evidence of acute compression fracture. 2. Mild multilevel disc degeneration. FINDINGS: 5 lumbar type vertebral bodies identified. The lumbar spine shows satisfactory alignment without zora dence of acute fracture or dislocation. Vertebral body heights are within normal limits. Mild multile juli disc space narrowing, moderate multilevel anterior and lateral spurring. Prominent lateral spur l eft L3-L4 level. The overlying soft tissue appears unremarkable. IMPRESSION: 1. No radiographic evidence of acute compression fracture. 2. Moderate multilevel disc degeneration.
[2024-03-02 23:19] VITALS: BP 146/80; PULSE 64; TEMP 97.8
== END 2024-03-02 23:09 | disposition home or self-care (01) ==
LOC: EC 20:09
DX: S39.012A Strain of muscle, fascia and tendon of lower back, initial encounter (principal); X58.XXXA Exposure to other specified factors, initial encounter
CPT/HCPCS: 72100; 99284; 96372 ×2; J2360; J1885

== ENCOUNTER → 2024-07-11 | Outpatient (CLI) | payer MEDICAID ==
[2024-07-11 15:22] LABS: HCT 41.6 % (39.6-50.0); HGB 13.9 g/dL (13.0-17.0); MCH 31.4 pg (27.0-32.0); MCHC 33.4 g/dL (32.0-37.0); MCV 94.1 FL (80.0-97.0); Mean Platelet Volume 11.1 FL (9.5-12.2); NRBC Per 100 WBC 0 X 10*3/uL (0.00-0.01); Platelet Count 261 X 10*3/uL (140-440); RBC 4.42 X 10*6/uL (4.40-5.60); WBC 5.07 X 10*3/uL (4.50-10.00)
[2024-07-11 15:49] LABS: Prostate Specific Antigen 0.98 ng/mL (0.000-4.500)
== END | disposition home or self-care (01) ==
LOC: LABWHC1 07:17
PROVIDERS: ATTEND Internal Medicine Endocrinology, Diabetes & Metabolism
DX: E29.1 Testicular hypofunction (principal)
CPT/HCPCS: 36415; 84153; 84403; 85027

== ENCOUNTER → 2024-08-08 | Outpatient (CLI) | payer MEDICAID ==
--- NOTE | 2024-08-08 10:49 | US ---
EXAMINATION TYPE: US kidneys/renal and bladder DATE OF EXAM: 08/08/2024 COMPARISON: CT 2016 CLINICAL INDICATION: Male, 63 years old with history of R80.9 PROTEINURIA, UNSPECIFIED; TECHNIQUE: Grayscale and color Doppler imaging of the bilateral kidneys and urinary bladder: FINDINGS: EXAM MEASUREMENTS: Right Kidney: 10.2 x 5.0 x 6.0 cm Left Kidney: 10.7 x 5.3 x 4.7 cm Right Kidney: No hydronephrosis , nephrolithiasis or masses seen Left Kidney: No hydronephrosis, nephrolithiasis or masses seen Bladder: wnl Bilateral Jets seen: Yes There is no evidence for hydronephrosis at this point in time. No nephrolithiasis is seen. No cecelia s are identified. The urinary bladder is anechoic. Bilateral ureteral jets are seen. Renal cortical echogenicity and thickness is maintained. IMPRESSION: Normal renal ultrasound. [facility], Workstation: [facility], 08/08/2024 10:47 AM
== END | disposition home or self-care (01) ==
LOC: RADUSWWP 06:53
PROVIDERS: ATTEND Family Medicine
DX: R80.9 Proteinuria, unspecified (principal)
CPT/HCPCS: 76770

== ENCOUNTER → 2025-01-18 | Outpatient (CLI) | payer MEDICAID ==
[2025-01-18 10:31] LABS: Basophils # (A) 0.02 X 10*3/uL (0.00-0.10); Basophils % (A) 0.5 %; Eosinophils # (A) 0.18 X 10*3/uL (0.04-0.35); Eosinophils % (A) 4.1 %; HGB 13.1 g/dL (13.0-17.0); Lymphocytes # (A) 1.78 X 10*3/uL (0.90-5.00); Lymphocytes % (A) 40.1 %; MCH 30.7 pg (27.0-32.0); MCHC 33.6 g/dL (32.0-37.0); MCV 91.3 FL (80.0-97.0); Monocytes # (A) 0.36 X 10*3/uL (0.20-1.00); Monocytes % (A) 8.1 %; NRBC Per 100 WBC 0 X 10*3/uL (0.00-0.01); Neutrophils # (A) 2.09 X 10*3/uL (1.80-7.70); Platelet Count 250 X 10*3/uL (140-440); RBC 4.27 X 10*6/uL (4.40-5.60); RDW 13.7 % (11.5-14.5); WBC 4.44 X 10*3/uL (4.50-10.00)
[2025-01-18 10:39] LABS: BUN/Creat Ratio 15.75 Ratio (12.00-20.00); Blood Urea Nitrogen 12.6 mg/dL (9.0-27.0); Glucose 103 mg/dL (70-110)
[2025-01-18 10:40] LABS: ALT 29 U/L (10-49); AST 19 U/L (14-35); Albumin 4.2 g/dL (3.8-4.9); Albumin/Globulin Ratio 1.83 Ratio (1.60-3.17); Alkaline Phosphatase 88 U/L (41-126); Calcium 9.5 mg/dL (8.7-10.3); Chloride 105 mmol/L (96-109); Globulin 2.3 g/dL (1.6-3.3); Phosphorus 3.5 mg/dL (2.4-5.1); Potassium 4.4 mmol/L (3.5-5.5); Sodium 139 mmol/L (135-145); Total Bilirubin <0.2 mg/dL (0.3-1.2); Total Protein 6.5 g/dL (6.2-8.2)
[2025-01-18 16:50] LABS: Appearance,Urine Clear (Clear); Bilirubin,Urine Negative (Negative); Blood,Urine Negative (Negative); Color,Urine Yellow (Yellow); Ketones,Urine Negative (Negative); Nitrite,Urine Negative (Negative); PH, Urine 5.5; Urobilinogen,Urine 0.2 E.U./DL
[2025-01-18 17:21] LABS: Urine Creatinine 82.4 mg/dL (39.0-259.0)
== END | disposition home or self-care (01) ==
LOC: LABWHC1 06:54
PROVIDERS: ATTEND Internal Medicine
DX: R80.9 Proteinuria, unspecified (principal)
CPT/HCPCS: 36415; 80053; 81003; 82043; 82570; 83735; 84100; 85025

== ENCOUNTER → 2025-05-10 | Outpatient (CLI) | payer MEDICAID ==
[2025-05-10 10:30] LABS: Basophils # (A) 0.04 X 10*3/uL (0.00-0.10); Basophils % (A) 0.8 %; Eosinophils # (A) 0.16 X 10*3/uL (0.04-0.35); Eosinophils % (A) 3.1 %; HCT 39.2 % (39.6-50.0); HGB 12.8 g/dL (13.0-17.0); Immature Grans, Automated 0.20 %; Lymphocytes # (A) 1.76 X 10*3/uL (0.90-5.00); Lymphocytes % (A) 34.4 %; MCH 29.4 pg (27.0-32.0); MCHC 32.7 g/dL (32.0-37.0); MCV 90.1 FL (80.0-97.0); Monocytes # (A) 0.37 X 10*3/uL (0.20-1.00); Monocytes % (A) 7.2 %; NRBC Per 100 WBC 0 X 10*3/uL (0.00-0.01); Neutrophils # (A) 2.78 X 10*3/uL (1.80-7.70); Neutrophils % (A) 54.3 %; Platelet Count 244 X 10*3/uL (140-440); RBC 4.35 X 10*6/uL (4.40-5.60); RDW 13.0 % (11.5-14.5); WBC 5.12 X 10*3/uL (4.50-10.00)
[2025-05-10 11:04] LABS: ALT 32 U/L (10-49); AST 18 U/L (14-35); Albumin 4.2 g/dL (3.8-4.9); Albumin/Globulin Ratio 1.75 Ratio (1.60-3.17); Alkaline Phosphatase 99 U/L (41-126); Anion Gap 10.80 mmol/L (4.00-12.00); BUN/Creat Ratio 18.29 Ratio (12.00-20.00); Blood Urea Nitrogen 12.8 mg/dL (9.0-27.0); Calcium 9.4 mg/dL (8.7-10.3); Carbon Dioxide 25.2 mmol/L (21.6-31.8); Chloride 103 mmol/L (96-109); Ferritin 213.0 ng/mL (22.0-322.0); Globulin 2.4 g/dL (1.6-3.3); Glucose 116 mg/dL (70-110); Iron 81 UG/DL (65-175); Magnesium 1.8 mg/dL (1.5-2.4); Potassium 4.3 mmol/L (3.5-5.5); Sodium 139 mmol/L (135-145); Total Iron Binding Capacity 277 UG/DL (228-460); Total Protein 6.6 g/dL (6.2-8.2); Uric Acid 4.2 mg/dL (3.7-8.7)
[2025-05-10 13:34] LABS: Free Kappa Lt Chain Qnt, Serum 1.56 mg/dL (0.33-1.94); Free Lambda Lt Chain Qnt, Seru 1.82 mg/dL (0.57-2.63)
== END | disposition home or self-care (01) ==
LOC: LABWHC1 06:56
PROVIDERS: ATTEND Internal Medicine
DX: N18.1 Chronic kidney disease, stage 1 (principal); D63.1 Anemia in chronic kidney disease; N39.0 Urinary tract infection, site not specified; E55.9 Vitamin D deficiency, unspecified; N25.81 Secondary hyperparathyroidism of renal origin; M10.9 Gout, unspecified; R80.9 Proteinuria, unspecified
CPT/HCPCS: 36415; 80053; 82306; 82728; 83540; 83550; 83735; 83883; 83970; 84100; 84550; 85025; 86334